=== PATIENT | female | born 1975 | race Caucasian/White ===

== ENCOUNTER 2016-10-24 15:24 | Emergency (ER) | payer MEDICARE, OTHER ==
--- NOTE | 2016-10-24 15:51 | ED ---
ENT HPI - General Chief complaint: ENT Stated complaint: sore throat/cough Time Seen by Provider: 10/24/16 15:34 Source: patient, RN notes reviewed Mode of arrival: ambulatory Limitations: no limitations - History of Present Illness Initial comments: Patient is a 41-year-old female with chief complaint of a sore throat and a cough. Patient reports that she's had a unpleasant taste in her throat whenever she coughs up her sputum. She denies any abnormal color sure sputum. She denies any fevers. Patient reports that she was seen in urgent care clinic and placed on clindamycin for a sore tooth. She denies any specific tooth that was bothering her she describes her teeth at night and the physician at the urgent care was concerned of a tooth abscess. She states that she does have a appointment with a primary care provider next week. She denies any shortness of breath or chest pain. She states that she's been taking Claritin-D for sinus congestion and earaches. Patient denies any recent fever, chills, shortness of breath, chest pain, back pain, abdominal pain, nausea vomiting, numbness or tingling, dysuria or hematuria, constipation or diarrhea, headaches or visual changes, or any other current symptoms - Related Data Home Medications Medication Instructions Recorded Confirmed Docusate [Colace] 1 tab PO DAILY 10/24/16 10/24/16 Gabapentin [Neurontin] 1 tab PO TID 10/24/16 10/24/16 Pregabalin [Lyrica] 100 mg PO BID 10/24/16 10/24/16 Temazepam [Restoril] 1 tab PO DAILY 10/24/16 10/24/16 Previous Rx's Medication Instructions Recorded guaiFENesin-DM 100-10MG/5ML 10 ml PO BID #120 ml 10/24/16 [Robitussin DM] Allergies Allergy/AdvReac Type Severity Reaction Status Date / Time No Known Allergies Allergy Verified 10/24/16 15:35 Review of Systems ROS Statement: Those systems with pertinent positive or pertinent negative responses have been documented in the HPI. ROS Other: All systems not noted in ROS Statement are negative. Past Medical History Past Medical History: Fibromyalgia History of Any Multi-Drug Resistant Organisms: None Reported Past Surgical History: Bariatric Surgery Past Psychological History: Anxiety Smoking Status: Never smoker Past Alcohol Use History: None Reported Past Drug Use History: None Reported General Exam Limitations: no limitations General appearance: alert, in no apparent distress Head exam: Present: atraumatic, normocephalic, normal inspection Eye exam: Present: normal appearance, PERRL, EOMI. Absent: scleral icterus, conjunctival injection, periorbital swelling ENT exam: Present: normal exam, normal oropharynx, mucous membranes moist, other (NO evidence of abscess tooth. ) Neck exam: Present: normal inspection. Absent: tenderness, meningismus, lymphadenopathy Respiratory exam: Present: normal lung sounds bilaterally. Absent: respiratory distress, wheezes, rales, rhonchi, stridor Cardiovascular Exam: Present: regular rate, normal rhythm, normal heart sounds. Absent: systolic murmur, diastolic murmur, rubs, gallop, clicks GI/Abdominal exam: Present: soft, normal bowel sounds. Absent: distended, tenderness, guarding, rebound, rigid Extremities exam: Present: normal inspection, full ROM, normal capillary refill. Absent: tenderness, pedal edema, joint swelling, calf tenderness Back exam: Present: normal inspection Neurological exam: Present: alert, oriented X3, CN II-XII intact Psychiatric exam: Present: normal affect, normal mood, anxious (Patient appears anxious and asks multiple questions. ), suicidal ideation (Patient adamently denies suicidal or homicidal ideation. ) Skin exam: Present: warm, dry, intact, normal color. Absent: rash Course Vital Signs 10/24/16 10/24/16 15:38 16:48 Temperature 98.2 F 98 F Pulse Rate 95 80 Respiratory 20 20 Rate Blood Pressure 127/63 134/84 O2 Sat by Pulse 100 98 Oximetry Medical Decision Making - Medical Decision Making Patient is a 41 year old female with chief complaint of cough and sore throat for 1 day. She reports recently being on clindamycin for possible dental infection. Patient has no evidence of abscessed tooth at this time. CXR and rapid strep are negative. Patient will be given prescription for cough syrup. When patient was being discharged, her significant other questioned if the psychiatrist faxed any information to the Emergency room. She reports she saw Dr. Naidu in [place] yesterday who recommended she saw another inpatient psychiatrist. The EC received no fax. Patient reports she has a hard time sleeping, and doesn't take her anxiety medications. She currently has temazapam prescription. She reports she is seeing her PCP on Wednesday who can write more anxiety medications for her. I state that the patient could be seen by our psychiatric nurse to have possible inpatient treatment and patient refused. Patient adamently denied suicidal ideation and homicidal ideation. She does not want to be seen for anxiety. I discussed that I will not write a prescription for these medications if she can follow up with her PCP and psychiatrist, and that patient still has anxiety medication in her pill bottles. Patient reports that she will take her anxiety medications. Patient was instructed to return if any alarming signs or symptoms occur. I advised patient to take her cough syrup and finish clindamycin prescription. Patient understands treatment plan and will comply. - Lab Data Lab Results 10/24/16 Range/Units 15:45 Group A Strep Rapid Negative (Negative) - Radiology Data Radiology results: report reviewed CXR reviewed to be normal. Disposition Clinical Impression: Upper respiratory infection Disposition: HOME SELF-CARE Condition: Good Instructions: Upper Respiratory Infection (ED) Additional Instructions: Continue clindamycin antibiotic until completely finished. Take cough syrup as directed. Return to the EC if any alarming signs or symptoms occur. Continue to use decongestant medication such as Claritin-D as directed. Prescriptions: guaiFENesin-DM 100-10MG/5ML [Robitussin DM] 10 ml PO BID #120 ml Referrals: Augusto Costa MD [Primary Care Provider] - 1-2 days Time of Disposition: 16:26
[2016-10-24 15:54] VITALS: RESP 20
--- NOTE | 2016-10-24 16:00 | XR ---
EXAMINATION TYPE: XR chest 2V DATE OF EXAM: 10/24/2016 3:57 PM COMPARISON: NONE HISTORY: Sore throat and cough TECHNIQUE: Frontal and lateral views of the chest are obtained. FINDINGS: Heart and mediastinum are normal. Lungs are clear. Diaphragm is normal. Bony thorax is int act. The pulmonary vascularity is normal. IMPRESSION: Normal chest. No change.
[2016-10-24] MEDS ORDERED: PROMETHAZINE 6.25MG/5ML 147.5 MG/118 ML BOTTLE PO STA (16:18)
[2016-10-24] MEDS ORDERED: guaiFENesin-DM 100-10MG/5ML 10 ML CUP PO ONE (16:30)
[2016-10-24 16:50] VITALS: BP 134/84; PULSE 80; TEMP 98
== END 2016-10-24 16:50 | disposition home or self-care (01) ==
LOC: EC 15:24
DX: J06.9 Acute upper respiratory infection, unspecified (principal); M79.7 Fibromyalgia; F41.9 Anxiety disorder, unspecified; Z79.899 Other long term (current) drug therapy
CPT/HCPCS: 71020; 87081; 87430; 99283

== ENCOUNTER 2016-10-24 23:56 | Emergency (ER) | payer MEDICARE, OTHER ==
[2016-10-25 00:02] VITALS: TEMP 98.4
--- NOTE | 2016-10-25 00:19 | ED ---
Anxiety HPI - General Chief Complaint: Anxiety Stated Complaint: anxiety Time Seen by Provider: 10/25/16 00:03 Source: patient, RN notes reviewed Mode of arrival: ambulatory - History of Present Illness Initial Comments: 41-year-old female presents to the emergency department with a chief complaint of anxiety. Patient states she's having increased anxiety unable to sleep. Patient states she wakes up around 1:30 morning she drinks coffee tea hot cocoa paces and becomes very agitated. Patient states she does have a long psych history patient states his anxiety and depression. Patient states she was diagnosed with bipolar but she does not believe that. Patient's friend is in the room and states that she has had inability to sleep. She's not been taking her psychiatric medications for about 2 months now. She states that she was mad at her psychiatrist's so she decided not to take them. Patient states that she is here because of her increased anxiety and inability to sleep and all she wants to do is sleep. Patient denies any suicidal or homicidal ideation. Patient denies any recent fever, chills, shortness of breath, chest pain, back pain, abdominal pain, nausea vomiting, numbness or tingling, dysuria or hematuria, constipation or diarrhea, headaches or visual changes, or any other current symptoms. - Related Data Home Medications: Home Medications Medication Instructions Recorded Confirmed Docusate [Colace] 1 tab PO DAILY 10/24/16 10/24/16 Gabapentin [Neurontin] 1 tab PO TID 10/24/16 10/24/16 Pregabalin [Lyrica] 100 mg PO BID 10/24/16 10/24/16 Temazepam [Restoril] 1 tab PO DAILY 10/24/16 10/24/16 Previous Rx's Medication Instructions Recorded guaiFENesin-DM 100-10MG/5ML 10 ml PO BID #120 ml 10/24/16 [Robitussin DM] Allergies/Adverse Reactions: Allergies Allergy/AdvReac Type Severity Reaction Status Date / Time No Known Allergies Allergy Verified 10/24/16 15:35 Review of Systems ROS Statement: Those systems with pertinent positive or pertinent negative responses have been documented in the HPI. ROS Other: All systems not noted in ROS Statement are negative. Past Medical History Past Medical History: Fibromyalgia History of Any Multi-Drug Resistant Organisms: None Reported Past Surgical History: Bariatric Surgery Past Psychological History: Anxiety Smoking Status: Never smoker Past Alcohol Use History: None Reported Past Drug Use History: None Reported General Exam Limitations: no limitations General appearance: alert, in no apparent distress Neck exam: Present: normal inspection. Absent: tenderness, meningismus, lymphadenopathy Respiratory exam: Present: normal lung sounds bilaterally. Absent: respiratory distress, wheezes, rales, rhonchi, stridor Cardiovascular Exam: Present: regular rate, normal rhythm, normal heart sounds. Absent: systolic murmur, diastolic murmur, rubs, gallop, clicks Neurological exam: Present: alert, oriented X3, CN II-XII intact. Absent: motor sensory deficit Psychiatric exam: Present: anxious, manic Skin exam: Present: warm, dry, intact Course Vital Signs 10/24/16 23:59 Temperature 98.4 F Pulse Rate 100 Respiratory 20 Rate Blood Pressure 171/61 O2 Sat by Pulse 97 Oximetry Medical Decision Making - Medical Decision Making 41-year-old female presents for what appears to be a manic state with a history of bipolar. This time the patient does not appear to be suffering from acute medical emergencies. Sent patient is cleared to be evaluated by psychiatry. At this time the patient was evaluated by psychiatry. Patient does not meet criteria for admission. Patient continues to deny any suicidal homicidal thoughts. Patient is any somewhat manic state however she is not a harm to herself or others. She is contracted. Patient is sleeping here in the emergency department. Patient will be discharged home. She is in agreement with the plan. Disposition Clinical Impression: Acute anxiety Disposition: HOME SELF-CARE Condition: Stable Instructions: Generalized Anxiety Disorder (ED) Additional Instructions: Please use medication as discussed. Please follow up with family doctor if symptoms have not improved over the next two days. Please return to the emergency room if your symptoms increase or worsen or for any other concerns. Referrals: Augusto Costa MD [Primary Care Provider] - 1-2 days Time of Disposition: 02:56
[2016-10-25 03:20] VITALS: BP 120/56; PULSE 74; RESP 18
== END 2016-10-25 03:19 | disposition home or self-care (01) ==
LOC: EC 23:56
DX: F41.9 Anxiety disorder, unspecified (principal); G47.00 Insomnia, unspecified; F31.9 Bipolar disorder, unspecified; Z98.84 Bariatric surgery status
CPT/HCPCS: 99283

== ENCOUNTER 2017-02-15 23:31 | Emergency (ER) | payer MEDICARE ==
[2017-02-16 00:17] VITALS: BP 126/68; PULSE 57; RESP 16; TEMP 98.5
--- NOTE | 2017-02-16 00:30 | ED ---
Psych HPI - General Chief Complaint: Psychiatric Symptoms Stated Complaint: Mental Health Time Seen by Provider: 02/16/17 00:17 Source: patient, RN notes reviewed Mode of arrival: ambulatory Limitations: no limitations - History of Present Illness Initial Comments: 41-year-old male presents emergency Department stating that she is upset. She states she is upset because she is afraid that her significant other is going to leave her. Patient states that she is afraid that he is on leave her and she is requesting marriage counseling. Patient denies any suicidal, homicidal thoughts. Patient states that she has not made any threats and has no feelings of harming herself or anyone else. Patient denies any alcohol or drug abuse. Patient states she is just upset she doesn't want him to leave. Patient has a psychiatrist and counselor. Patient states that they discuss things on a regular basis. Patient states he does take medications for psychiatric disorders. Patient has no physical complaints and no harm to herself at this time. - Related Data Home Medications Medication Instructions Recorded Confirmed Docusate [Colace] 1 tab PO DAILY 10/24/16 10/24/16 Gabapentin [Neurontin] 1 tab PO TID 10/24/16 10/24/16 Pregabalin [Lyrica] 100 mg PO BID 10/24/16 10/24/16 Temazepam [Restoril] 1 tab PO DAILY 10/24/16 10/24/16 Previous Rx's Medication Instructions Recorded guaiFENesin-DM 100-10MG/5ML 10 ml PO BID #120 ml 10/24/16 [Robitussin DM] Allergies Allergy/AdvReac Type Severity Reaction Status Date / Time Penicillins Allergy Unknown Verified 02/16/17 00:17 Childhood Review of Systems ROS Statement: Those systems with pertinent positive or pertinent negative responses have been documented in the HPI. ROS Other: All systems not noted in ROS Statement are negative. Past Medical History Past Medical History: Fibromyalgia Additional Past Medical History / Comment(s): anemia History of Any Multi-Drug Resistant Organisms: None Reported Past Surgical History: Bariatric Surgery Past Psychological History: Anxiety, Depression Smoking Status: Never smoker Past Alcohol Use History: None Reported Past Drug Use History: None Reported General Exam Limitations: no limitations General appearance: alert, in no apparent distress Eye exam: Present: normal appearance, PERRL, EOMI. Absent: scleral icterus, conjunctival injection, periorbital swelling ENT exam: Present: normal exam, mucous membranes moist Neck exam: Present: normal inspection. Absent: tenderness, meningismus, lymphadenopathy Respiratory exam: Present: normal lung sounds bilaterally. Absent: respiratory distress, wheezes, rales, rhonchi, stridor Cardiovascular Exam: Present: regular rate, normal rhythm, normal heart sounds. Absent: systolic murmur, diastolic murmur, rubs, gallop, clicks GI/Abdominal exam: Present: soft, normal bowel sounds. Absent: distended, tenderness, guarding, rebound, rigid Neurological exam: Present: alert, oriented X3, CN II-XII intact Psychiatric exam: Present: anxious Skin exam: Present: warm, dry, intact, normal color. Absent: rash Course Vital Signs 02/15/17 23:34 Temperature 98.5 F Pulse Rate 57 L Respiratory 16 Rate Blood Pressure 126/68 O2 Sat by Pulse 98 Oximetry Medical Decision Making - Medical Decision Making 41-year-old female presented for relationship problems. Patient is not homicidal or suicidal. Patient has psychiatrist and a counselor. Patient is requesting marriage counseling. I did inform her that we do not do counseling here that she has a psychiatrist and counselor to follow up with. Patient's will follow palpation as directed. Disposition Clinical Impression: Adjustment reaction, Relational problem Disposition: HOME SELF-CARE Condition: Stable Instructions: Mood Disorders (ED) Additional Instructions: Please return to the Emergency Department if symptoms worsen or any other concerns. Referrals: Augusto Costa MD [Primary Care Provider] - 1-2 days Time of Disposition: 00:30
[2017-02-16] MEDS ORDERED: ORPHENADRINE 30 MG/ML 2 ML VIAL IM STA (00:36)
[2017-02-16] MEDS ORDERED: ACETAMINOPHEN TAB 325 MG TAB PO STA (00:40)
== END 2017-02-16 00:47 | disposition home or self-care (01) ==
LOC: EC 23:31
DX: F43.20 Adjustment disorder, unspecified (principal); F32.9 Major depressive disorder, single episode, unspecified; F41.9 Anxiety disorder, unspecified; Z63.0 Problems in relationship with spouse or partner; Z79.899 Other long term (current) drug therapy; Z88.0 Allergy status to penicillin
CPT/HCPCS: 99283; 96372; J2360